=== PATIENT | female | born 1945 | race Hispanic/Latino ===

== ENCOUNTER 2018-04-20 20:39 | Observation (INO) | payer MEDICARE, OTHER ==
[2018-04-20 21:49] LABS: Basophils % (Auto) 0.5 % (0.0-1.8); Eosinophils # (Auto) 0.1 K/mm3 (0.0-0.4); Eosinophils % (Auto) 1.3 % (0.0-4.3); Hematocrit 41.6 % (30.3-42.9); Lymphocytes # (Auto) 2.5 K/mm3 (1.2-5.4); Lymphocytes % (Auto) 26.5 % (13.4-35.0); Mean Corpuscular HGB Conc 34 % (30-34); Mean Corpuscular Hemoglobin 29 pg (28-32); Mean Corpuscular Volume 87 fl (79-97); Monocytes # (Auto) 0.6 K/mm3 (0.0-0.8); Monocytes % (Auto) 6.8 % (0.0-7.3); Platelet Count 260 K/mm3 (140-440); Red Blood Count 4.78 M/mm3 (3.65-5.03); Red Cell Distribution Width 14.5 % (13.2-15.2)
--- NOTE | 2018-04-20 21:56 | XRay Report ---
FINAL REPORT EXAM: XR CHEST ROUTINE 2V HISTORY: Shortness of breath TECHNIQUE: Two view chest PA and lateral PRIORS: None. FINDINGS: Cardiac and mediastinal contours are unremarkable. No focal pulmonary infiltrate is identified. No pleural fluid collection seen. Pulmonary vasculature is unremarkable. IMPRESSION: Negative two-view chest
[2018-04-20 22:03] LABS: BUN/Creatinine Ratio 10; Blood Urea Nitrogen 7 mg/dL (7-17); Calcium 9.7 mg/dL (8.4-10.2); Hemolysis Index 11
--- NOTE | 2018-04-21 00:12 | Emergency Department Report ---
HPI - General Chief Complaint: Dizziness Time Seen by Provider: 04/20/18 23:06 - HPI HPI: 72-year-old female presents to the emergency department with complaint of some generalized dizziness, weakness, a jittery feeling and some chest pressure has been going on since about 4 PM. She did not take anything for her symptoms prior to presentation. She denies any headache, vision change , slurred speech. The patient does complain of some intermittent numbness to the left hand. She is a former smoker. She has a history of COPD but is not oxygen dependent. No recent travel or sick contacts at home. Her primary care physician is Dr. Moscoso. She does not have a ordained minister and has never had a stress test. ED Past Medical Hx - Past Medical History Hx COPD: Yes Additional medical history: Collasped lung - Surgical History Additional Surgical History: Hysterectomy, - Social History Smoking Status: Former Smoker Substance Use Type: None - Medications Home Medications: Home Medications Medication Instructions Recorded Confirmed Last Taken Type ALBUTEROL Inhaler [ProAir HFA 8.5 gram IH DAILY 04/21/18 04/21/18 Unknown History Inhaler] ED Review of Systems ROS: Stated complaint: WEAKNESS Other details as noted in HPI Comment: All other systems reviewed and negative Constitutional: denies: chills, fever Eyes: denies: eye pain, eye discharge, vision change ENT: denies: ear pain, throat pain Respiratory: denies: cough, shortness of breath, wheezing Cardiovascular: chest pain. denies: palpitations Gastrointestinal: denies: abdominal pain, nausea, diarrhea Genitourinary: denies: urgency, dysuria, discharge Musculoskeletal: denies: back pain, joint swelling, arthralgia Skin: denies: rash, lesions Neurological: numbness, other (dizziness). denies: headache Physical Exam - Physical Exam Vital Signs: Vital Signs 04/20/18 04/20/18 21:17 23:24 Temperature 97.4 F L 98.1 F Pulse Rate 79 107 H Respiratory 18 22 Rate Blood Pressure 188/89 Blood Pressure 148/89 [Left] O2 Sat by Pulse 99 99 Oximetry Physical Exam: GENERAL: The patient is well-developed well-nourished. HENT: Normocephalic. Atraumatic. Patient has moist mucous membranes. EYES: Extraocular motions are intact. Pupils equal reactive to light bilaterally. NECK: Supple. Trachea is midline. CHEST/LUNGS: Clear to auscultation. There is no respiratory distress noted. HEART/CARDIOVASCULAR: Regular. There is no tachycardia. There is no murmur. ABDOMEN: Abdomen is soft, nontender. Patient has normal bowel sounds. There is no abdominal distention. SKIN: Skin is warm and dry. NEURO: The patient is awake, alert, and oriented. The patient is cooperative. The patient has no focal neurologic deficits. The patient has normal speech. Cranial nerves II through XII grossly intact. MUSCULOSKELETAL: There is no tenderness or deformity. There is no limitation range of motion. There is no evidence of acute injury. ED Course Vital Signs 04/20/18 04/20/18 21:17 23:24 Temperature 97.4 F L 98.1 F Pulse Rate 79 107 H Respiratory 18 22 Rate Blood Pressure 188/89 Blood Pressure 148/89 [Left] O2 Sat by Pulse 99 99 Oximetry ED Medical Decision Making - Lab Data Result diagrams: 04/20/18 21:28 04/20/18 21:28 - EKG Data -: EKG Interpreted by Me EKG shows normal: sinus rhythm, axis, intervals, QRS complexes, ST-T waves ( nonspecific ST-T waves) Rate: normal - EKG Data When compared to previous EKG there are: previous EKG unavailable Interpretation: other (sinus rhythm, normal axis, normal intervals, nonspecific ST-T waves) - Radiology Data Radiology results: report reviewed, image reviewed interpreted by me: Chest x-ray does not show any acute process. There are no pleural effusions, obvious pneumonia and there is no pneumothorax. EXAM: CT ANGIO CHEST HISTORY: CP, elevated dimer TECHNIQUE: High-resolution helical axial images were obtained of the chest during intravenous administration of iodinated contrast. Images are reconstructed in the sagittal and coronal planes. PRIORS: Chest x-ray performed on the same day FINDINGS: There is no evidence of pulmonary embolism, the pulmonary arteries opacify normally. The heart and thoracic aorta appear normal. There is mild biapical parenchymal scar. The lungs are clear. Images through the upper abdomen are unremarkable. There is multilevel thoracic spondylosis. IMPRESSION: 1. No evidence of pulmonary embolism. 2. No acute findings in the chest Transcribed By: MLG Dictated By: NIDA PASTOR MD Electronically Authenticated By: NIDA PASTOR MD Signed Date/Time: 04/21/18 1646 - Medical Decision Making Patient presents with some jitteriness, chest pain, dizziness. She does not have any focal, motor or sensory deficits. EKG does not show any signs of ST elevation CA, or dysrhythmia. Chest x-ray does not show any acute process. Labs are mostly unremarkable. Multiple negative troponins but she did have a slightly elevated and d-dimer. For this reason a CT angiography of the chest was done that did not end up showing any pulmonary embolism or aortic dissection. The patient still has some chest pressure and has never had a stress test. For this reason she will be admitted to the hospital for either a stress test or cardiology consultation. She has been accepted for admission by the hospitalist, Dr. Brooks. - Differential Diagnosis CA, PE, Costochondritis, Dysrythmia, Pneumonia Critical Care Time: No Critical care attestation.: If time is entered above; I have spent that time in minutes in the direct care of this critically ill patient, excluding procedure time. ED Disposition Clinical Impression: Acute chest pain, Jittery, Dizziness Disposition: -09 OP ADMIT IP TO THIS HOSP Is pt being admited?: Yes Does the pt Need Aspirin: Yes Condition: Fair Instructions: Chest Pain (ED) Referrals: PRIMARY CARE, [Primary Care Provider] - 3-5 Days Time of Disposition: 04:37
[2018-04-21 00:59] LABS: Bilirubin,Urine NEG (Negative); Blood,Urine SM (Negative); Color,Urine Straw (Yellow); Protein,Urine <15 mg/dL mg/dL (Negative); Urobilinogen,Urine < 2.0 mg/dL (<2.0)
--- NOTE | 2018-04-21 03:53 | Cat Scan Report ---
FINAL REPORT EXAM: CT ANGIO CHEST HISTORY: CP, elevated dimer TECHNIQUE: High-resolution helical axial images were obtained of the chest during intravenous administration of iodinated contrast. Images are reconstructed in the sagittal and coronal planes. PRIORS: Chest x-ray performed on the same day FINDINGS: There is no evidence of pulmonary embolism, the pulmonary arteries opacify normally. The heart and thoracic aorta appear normal. There is mild biapical parenchymal scar. The lungs are clear. Images through the upper abdomen are unremarkable. There is multilevel thoracic spondylosis. IMPRESSION: 1. No evidence of pulmonary embolism. 2. No acute findings in the chest
[2018-04-21] MEDS ORDERED: BABY ASPIRIN PO ONE (04:37)
[2018-04-21] MEDS ORDERED: HEPARIN SUB-Q SCH (06:00)
[2018-04-21] MEDS ORDERED: PERCOCET 5/325 PO PRN (07:27)
[2018-04-21] MEDS ORDERED: SODIUM CHLORIDE FLUSH SYRINGE 10 ML IV PRN (07:27)
[2018-04-21] MEDS ORDERED: MORPHINE IV PRN (07:27)
[2018-04-21] MEDS ORDERED: ZOFRAN IV PRN (07:27)
[2018-04-21] MEDS ORDERED: TYLENOL PO PRN (07:27)
--- NOTE | 2018-04-21 07:27 | Event Note ---
Date: 04/21/18 See dictated history and physical in the reports Chest pain rule out [place] Chest pain protocol COPD Lexiscan today
[2018-04-21] MEDS ORDERED: LEXISCAN IV ONE ×2 (08:14→08:16)
--- NOTE | 2018-04-21 09:42 | History and Physical Report ---
CHIEF COMPLAINT: Dizziness and left-sided chest pain since 4:00 p.m. HISTORY OF PRESENT ILLNESS: A 72-year-old female with history of COPD and collapsed lung mccord 30 years ago comes in with left-sided chest pain and dizziness. Also feeling weak. This started at around 4:00 p.m. Chest pain is intermittent, dull in character, 6 on a scale of 1-10. Primary care physician is Dr. Hurley. She used to smoke until 30 years ago, stopped smoking after the lung collapsed. No diaphoresis, no shortness of breath, no palpitations. No radiation of the pain. No recent travel. PAST MEDICAL HISTORY: Significant for COPD and collapsed lungs. PAST SURGICAL HISTORY: Chest tube 30 years ago. Hysterectomy. SOCIAL HISTORY: Former smoker 30 years ago. FAMILY HISTORY: Hypertension. REVIEW OF SYSTEMS: Significant for left-sided chest pain and dizziness. Otherwise, review of systems is negative. PHYSICAL EXAMINATION: GENERAL: Elderly female, cooperative during the examination. VITAL SIGNS: Blood pressure is 117/69, temperature is 97.4, respirations are 13, sats are 96%. HEENT: Unremarkable. Pupils are equal and reactive. NECK: Supple, no lymphadenopathy, no thyromegaly. LUNGS: Clear to auscultation and percussion. Good air entry. CARDIOVASCULAR: S1-S2 heard. No gallop, no murmur, no rub. Apical impulse in the left fifth intercostal space and midclavicular line. ABDOMEN: Soft and benign. No hepatosplenomegaly, no guarding, no rigidity. Hernial orifices are normal. EXTREMITIES: Good pedal pulses. No pedal edema. CENTRAL NERVOUS SYSTEM: Alert and oriented x 4, nonfocal exam. LABORATORY DATA: EKG: Prominent sinus arrhythmia, minimal ST depression in diffuse leads. LVH by voltage criteria. Heart rate of 83 per minute. Chest x-ray: No acute findings. CT angiogram of the chest, no evidence of pulmonary embolism. ASSESSMENT AND PLAN: 1. Chest pain, rule out myocardial infarction protocol. Serial troponins and Lexiscan today. Costochondritis unlikely. No chest wall tenderness. Gastroesophageal reflux disease is a possibility. 2. Chronic obstructive pulmonary disease. Continue bronchodilators. 3. Deep venous thrombosis prophylaxis, heparin 5000 q.12. JOB# [id number] WILMA/ANGELA
[2018-04-21] MEDS ORDERED: PEPCID IV SCH (10:00)
[2018-04-21] MEDS ORDERED: SODIUM CHLORIDE FLUSH SYRINGE 10 ML IV SCH (10:00)
[2018-04-21 11:55] VITALS: BP 135/76
--- NOTE | 2018-04-21 11:55 | Discharge Summary ---
Providers - Providers Date of Admission: 04/21/18 04:37 Date of discharge: 04/21/18 Attending physician: CHINYERE AVILES MD Primary care physician: HOLLY GUZMAN MD Hospitalization Reason for admission: Chest pain Condition: Fair Pertinent studies: Cardiac stress test negative for acute ischemia CTA for PE Hospital course: 72-year-old female was admitted for chest pain, cardiac enzymes are negative, cardiac stress test was negative, CTA negative for PE. Patient's chest pain subsided and discharged home. Patient was hemodynamically stable at the time of discharge. Disposition: DC-01 TO HOME OR SELFCARE Time spent for discharge: 32 minutes - Discharge Diagnoses (1) Acute chest pain Status: Acute (2) Dizziness Status: Acute Core Measure Documentation - Palliative Care Palliative Care/ Comfort Measures: Not Applicable - Core Measures Any of the following diagnoses?: none Exam - Physical Exam Narrative exam: Not in cardiopulmonary distress. The patient appeared well nourished and normally developed. Vital signs as documented. Head exam is unremarkable. No scleral icterus . Neck is without jugular venous distension, thyromegaly, or carotid bruits. Lungs are clear to auscultation. Cardiac exam reveals regular rate and Rhythm. First and second heart sounds normal. No murmurs, rubs or gallops. Abdominal exam reveals normal bowel sounds, no masses, no organomegaly and no aortic enlargement. Extremities are nonedematous and both femoral and pedal pulses are normal. PATTERN ILLUSTRATOR: Alert and oriented 3. No focal weakness. - Constitutional Vitals: Temp Pulse Resp BP Pulse Ox 97.4 F L 80 16 114/56 97 04/21/18 05:57 04/21/18 06:59 04/21/18 05:57 04/21/18 05:57 04/21/18 05:57 Plan Activity: no restrictions Weight Bearing Status: Full Weight Bearing Diet: regular Follow up with: PRIMARY CAREMD [Primary Care Provider] - 7 Days
--- NOTE | 2018-04-21 23:46 | Treadmill Report ---
NUCLEAR PERFUSION SCAN REFERRING PHYSICIAN: Hospitalist service. PROTOCOL: The patient was brought to the stress lab in postoperative state and given 10 mCi of technetium 99m at rest. The patient underwent rest imaging. The patient underwent Lexiscan stress test. At peak stress, the patient was given 26 mCi of technetium 99m. Shortly thereafter, the patient underwent stress imaging. Raw imaging reveals mild GI artifact, no significant motion artifact. SPECT image examined carefully in horizontal long axis, vertical long axis, short axis views. There is normal homogenous uptake of radioisotope in all reported segments. No evidence of significant fixed or reversible perfusion defects suggestive of prior infarction or ischemia. Gated wall motion reveals normal systolic thickening, calculated ejection fraction 75%. No TID. JOB# [id number] RODRICK/ANGELA
== END 2018-04-21 13:09 | disposition home or self-care (01) ==
LOC: ED 20:39 → 4A 04-21 04:37
PROVIDERS: ADMIT Internal Medicine; ATTEND Internal Medicine
DX: R07.89 Other chest pain (principal); R42 Dizziness and giddiness; J44.9 Chronic obstructive pulmonary disease, unspecified; Z87.891 Personal history of nicotine dependence; Z82.49 Family history of ischemic heart disease and other diseases of the circulatory system
CPT/HCPCS: 36415; 71046; 71275; 78452; 80048; 81001; 82962; 83036; 84443; 84484; 85025; 85379; 93005; 93010; 93017; 99285; A9502; G0378; J2785; Q9967